=== PATIENT | female | born 1965 | race Two or more races ===

== ENCOUNTER → 2016-07-11 | Outpatient (CLI) | payer OTHER ==
[~2016-07-11] MED LIST: ALBUTEROL17 GM INH; BENTYL20 MG PO; BENZONATATE PO; BUTALB-APAP-CA1 EACH PO; CHOLESTEROL; CHOLESTEROL MED; CIPRO250 M1; CRESTOR PO; DELTASONE20 MG PO; DEPRESSION; DEPRESSION MED; FLEXERIL10 MG PO; HYCODAN60 ML 5MG/ PO; INHALER; NAPROSYN500 MG PO; NO MEDICATIONS; ORUDIS75 M1 PO; PHENERGAN25 MG; PROTONIX PO; ROBAXIN500 MG PO; TRAMADOL HCL50 M1; ZITHROMAX PO; [UNRECOGNIZED DRUG - REMARK]; [UNRECOGNIZED DRUG - REMARK]; [UNRECOGNIZED DRUG - REMARK]
--- NOTE | ~2016-07-11 | CR63 ---
[facility] A Service of [facility] & [facility] RADIOLOGY TEXT RESULTS PATIENT: MIKE KELLY LOCATION: [facility] : 61 UNIT #: [id number] AGE: [address]: JASON SOSA SEX: F ORDER DR: [id number] [facility] [address] [place], [place] [address] [id number] O MR#: [id number] Acc #: [id number] NAME: MIKE KELYL : 1965 SEX: F STUDY DATE/TIME: 07/11/2016 10:47 UNIT: [facility] ROOM: STUDY DESCRIPTION: CR Chest 2 View Attending Physician: Yoselyn Arias Referring Physician: Yoselyn Arias Ordering Physician: Yoselyn Arias Primary Care Physician: Angie Charlton M.D. MEDICAL IMAGING REPORT This report is preliminary unless electronic signature is present EXAM Chest, 07/11/2016 HISTORY 50-year-old female with unexplained cough, congestion, short of air for upp-da-wrlww months duration. Patient gives history of asthma. Current smoker. COMPARISON Chest 03/16/2016 FINDINGS PA and lateral chest views show normal stable cardiac size and configuration. There is mild elongation of the thoracic aorta. Hilar structures are preserved. Lungs are mildly hyperinflated but clear with no infiltrates. Costophrenic angles are preserved. IMPRESSION Stable chest with no acute chest finding. Dictated by... Jamie Mg M.D. THIS IS AN ELECTRONICALLY VERIFIED REPORT Jamie Mg M.D. at 07/12/2016 8:04 AM Arpita TD: 07/11/2016 15:33 JOB #: [id number] MEDICAL IMAGING REPORT Page 1 of 1 COPY
== END | disposition home or self-care (01) ==
LOC: CRAD 10:32
DX: R05 Cough (principal); F17.200 Nicotine dependence, unspecified, uncomplicated
CPT/HCPCS: 71020

== ENCOUNTER → 2016-11-15 | Outpatient (CLI) | payer OTHER ==
--- NOTE | ~2016-11-15 | CR181 ---
[facility] A Service of [facility] & [facility] RADIOLOGY TEXT RESULTS PATIENT: MIKE KELLY LOCATION: [facility] : 61 UNIT #: [id number] AGE: [address]: Lilian Vargas APRN SEX: F ORDER DR: [id number] [facility] [address] [place], [place] [address] [id number] O MR#: [id number] Acc #: [id number] NAME: MIKE KELLY : 1965 SEX: F STUDY DATE/TIME: 11/15/2016 15:42 UNIT: [facility] ROOM: STUDY DESCRIPTION: CR Lumbar Spine 2 or 3 Views Attending Physician: Lilian Vargas Aprn Referring Physician: Lilian Vargas Aprn Ordering Physician: Lilian Vargas Aprn Primary Care Physician: Angie Charlton M.D. MEDICAL IMAGING REPORT This report is preliminary unless electronic signature is present EXAM 3 views lumbar spine, 11/15/2016 HISTORY 51-year-old female with lumbago. Low back pain radiating down both legs for 2 months. No known injury. COMPARISON Lumbar spine radiographs 09/07/2012. CT abdomen and pelvis bone windows 01/11/2014. FINDINGS No acute lumbar spine fracture or subluxation. Disc space height appears well preserved. Anterior superior endplate osteophytes are present at L3-4, similar to prior. No osteolytic or osteoblastic abnormalities. No significant facet arthropathy is identified. IMPRESSION Small endplate marginal osteophytes at L3 and L4 are unchanged from 2013. No acute lumbar spine findings. No significant degenerative changes are identified. Dictated by... Marybeth Au M.D. THIS IS AN ELECTRONICALLY VERIFIED REPORT Marybeth Au M.D. at 11/18/2016 9:33 PM Aniket TD: 11/16/2016 12:47 JOB #: [id number] MEDICAL IMAGING REPORT [facility] A Service of [facility] & [facility] RADIOLOGY TEXT RESULTS PATIENT: MIKE KELLY LOCATION: [facility] #: [id number] : 61 UNIT #: [id number] AGE: [address]: Lilian Vargas APRN SEX: F ORDER DR: Page 1 of 1 COPY
--- NOTE | ~2016-11-15 | CR63 ---
[facility] A Service of [facility] & [facility] RADIOLOGY TEXT RESULTS PATIENT: MIKE KELLY LOCATION: [facility] : 61 UNIT #: [id number] AGE: [address]: Lilian Vargas APRN SEX: F ORDER DR: [id number] [facility] [address] [place], [place] [address] [id number] O MR#: [id number] Acc #: [id number] NAME: MIKE KELLY : 1965 SEX: F STUDY DATE/TIME: 11/15/2016 15:41 UNIT: [facility] ROOM: STUDY DESCRIPTION: CR Chest 2 View Attending Physician: Lilian Vargas Aprn Referring Physician: Lilian Vargas Aprn Ordering Physician: Yoselyn Arias Primary Care Physician: Angie Charlton M.D. MEDICAL IMAGING REPORT This report is preliminary unless electronic signature is present EXAM Chest, two views. HISTORY A 51-year-old woman chest pain, low back pain radiating down both legs. Symptoms x2 months. Long-term smoking history. History of asthma. COMPARISON Chest 07/11/2016 FINDINGS PA and lateral chest views show normal cardiac size and configuration. Hilar structures and mediastinal contours are preserved. Bilateral lungs are mildly hyperinflated but clear with no infiltrates and no effusions. IMPRESSION Stable chest with mild pulmonary hyperinflation only. No acute chest finding. Dictated by... Jamie Mg M.D. THIS IS AN ELECTRONICALLY VERIFIED REPORT Jamie Mg M.D. at 11/16/2016 1:19 PM Stephan TD: 11/16/2016 11:56 JOB #: [id number] MEDICAL IMAGING REPORT Page 1 of 1 COPY
== END | disposition home or self-care (01) ==
LOC: CRAD 15:28
DX: M54.5 Low back pain (principal); R07.9 Chest pain, unspecified; R91.8 Other nonspecific abnormal finding of lung field; M25.78 Osteophyte, vertebrae
CPT/HCPCS: 71020; 72100

== ENCOUNTER → 2016-12-08 | Outpatient (CLI) | payer OTHER ==
--- NOTE | ~2016-12-08 | MY29 ---
[facility] A Service of [facility] RADIOLOGY TEXT RESULTS PATIENT: MIKE KELLY LOCATION: [facility] : 61 UNIT #: [id number] AGE: [address]: Angie Charlton MD SEX: F ORDER DR: [id number] [facility] [address] [place], [place] [address] [id number] O MR#: [id number] Acc #: [id number] NAME: MIKE KELLY : 1965 SEX: F STUDY DATE/TIME: 12/08/2016 14:20 UNIT: [facility] ROOM: STUDY DESCRIPTION: [facility] SCREENING W/ CAD BILAT Attending Physician: Angie Charlton M.D. Referring Physician: Angie Charlton M.D. Ordering Physician: Angie Charlton M.D. Primary Care Physician: Angie Charlton M.D. MEDICAL IMAGING REPORT This report is preliminary unless electronic signature is present EXAM Digital screening mammogram 12/08/2016 HISTORY 51-year-old woman no risk elevation. Annual screen. COMPARISON Mammograms 07/19/2010, 04/07/2015. FINDINGS Digital imaging of each breast was completed utilizing screening protocol. Review includes FDA-approved CAD device. Breast parenchyma remains dense with fibroglandular opacities in each breast. Parenchyma is dominant in the left breast. There are numerous punctate calcifications noted in each breast although again these are dominant in the left breast. These have benign characteristics generally associated sclerosing adenosis. I see no interval occurring suspicious mass and no suspicious microcalcifications. There is no architectural deformity identified. IMPRESSION Benign mammogram. Annual screening recommended. Patients over the age of 40 are entered into a reminder system with target due date for the next mammogram. A result letter will also be sent to the patient. BIRADS: 2 Benign finding Dictated by... Jamie Mg M.D. [facility] A Service [facility] RADIOLOGY TEXT RESULTS PATIENT: MIKE KELLY LOCATION: [facility] : 61 UNIT #: [id number] AGE: [address]: Angie Charlton MD SEX: F ORDER DR: THIS IS AN ELECTRONICALLY VERIFIED REPORT Jamie Mg M.D. at 12/09/2016 1:44 PM Jose Luis TD: 12/09/2016 12:39 JOB #: [id number] MEDICAL IMAGING REPORT Page 1 of 1 COPY
== END | disposition home or self-care (01) ==
LOC: CWCC 13:49
DX: Z12.31 Encounter for screening mammogram for malignant neoplasm of breast (principal)
CPT/HCPCS: G0202; G0204